=== PATIENT | female | born 1995 | race Caucasian/White ===

== ENCOUNTER → 2021-06-03 | Outpatient (CLI) | payer OTHER ==
[~2021-06-03] MED LIST: MOTRIN 800800 MG/TAB PO; OSCAL 500 TAB500 MG; PERCOCET 325 MG1 TA2 PO; PRENATAL TABLET PO
== END ==
LOC: COL.LAB 11:27
DX: Z20.822 Contact with and (suspected) exposure to COVID-19 (principal)

== ENCOUNTER 2021-06-06 06:08 | Inpatient (IN) | payer SELFPAY ==
[~2021-06-06] VITALS: Ht 165.1 cm; Wt 86.8 kg
[2021-06-06] VITALS (22 sets, daily range): BP systolic 97–123; BP diastolic 56–79; PULSE 66–99; TEMP 97.4–98.1
[2021-06-06] MEDS ORDERED: PRENATAL TABLET PO (07:36)
[2021-06-06] MEDS ORDERED: OSCAL 500 TAB500 MG (07:36)
[2021-06-06 08:14] LABS: BASO % 0.4 % (0.0-2.0); EOS % 0.5 % (0-4.0); GRAN # 5.4 (1.4-6.5); GRAN % 67.3 % (42.2-75.2); LYMPH # 1.9 (1.2-3.4); LYMPH % 23.7 % (20.0-51.0); MEAN CELL VOLUME 82 fl (80.0-100.0); MEAN CORPUSCULAR HEMOGLOBIN 28 pg (27.0-31.0); MEAN CORPUSCULAR HGB CONC 34 g/dl (33.0-37.0); MEAN PLATELET VOLUME 10.8 fl (7.4-10.4); MONO # 0.6 (0.1-0.6); MONO % 7.6 % (1.7-9.3); PLATELET COUNT 388 K/mm3 (130-400); RED BLOOD COUNT 3.98 M/mm3 (4.10-5.30); REDCELL DISTRIBUTION WIDTH-CV 14.6 % (11.5-14.5)
[2021-06-06 08:17] LABS: HEMATOCRIT 32.8 % (37.0-47.0)
[2021-06-07 02:25] VITALS: BP 121/68; PULSE 63; TEMP 98.2
[2021-06-07 07:10] VITALS: BP 114/75; PULSE 69; TEMP 98
[2021-06-07] MEDS ORDERED: MOTRIN 800800 MG/TAB PO (08:04)
[2021-06-07] MEDS ORDERED: PERCOCET 325 MG1 TA2 PO (08:05)
[2021-06-07 16:10] VITALS: BP 104/54; PULSE 66; TEMP 97.9
[2021-06-07 19:25] VITALS: BP 128/81; PULSE 70; TEMP 97.9
[2021-06-08 07:15] VITALS: BP 118/72; PULSE 59; TEMP 97.9
== END 2021-06-08 11:11 | disposition home or self-care (01) | DRG 807 ==
LOC: LDR 06:08 → OB 06:08 → LDR 09:51 → OB 14:00
PROVIDERS: ADMIT Obstetrics & Gynecology
PROC: 10E0XZZ Delivery of Products of Conception, External Approach (ICD-10-PCS; principal; 2021-06-06)
PROC: 0KQM0ZZ Repair Perineum Muscle, Open Approach (ICD-10-PCS; 2021-06-06)
PROC: 10907ZC Drainage of Amniotic Fluid, Therapeutic from Products of Conception, Via Natural or Artificial Opening (ICD-10-PCS; 2021-06-06)
PROC: 3E033VJ Introduction of Other Hormone into Peripheral Vein, Percutaneous Approach (ICD-10-PCS; 2021-06-06)
DX: O99.344 Other mental disorders complicating childbirth (principal); Z37.0 Single live birth; F32.9 Major depressive disorder, single episode, unspecified; O70.1 Second degree perineal laceration during delivery; Z3A.39 39 weeks gestation of pregnancy; Z87.51 Personal history of pre-term labor
CPT/HCPCS: J2590; J2791; J7120